=== PATIENT | male | born 1965 | race Caucasian/White ===

== ENCOUNTER → 2020-01-20 | Outpatient (CLI) | payer SELFPAY | LOC: ZCOL.LAB 10:00 | DX: Z01.818 Encounter for other preprocedural examination (principal); Z20.828 Contact with and (suspected) exposure to other viral communicable diseases ==

== ENCOUNTER 2023-10-05 07:33 | Day surgery (SDC) | payer MEDICARE ==
[~2023-10-05] VITALS: Ht 157.5 cm; Wt 122.5 kg
[~2023-10-05 07:33] MED LIST: CIPRO 500MG TA500 MG PO; DIFLUCAN 100MG100 MG PO; HUMALOG 75/2100 U/ML SQ; HYTRIN 2MG CAPSU2 MG PO; HYTRIN 5MG C5 MG/CAP PO; LASIX 40MG TABL40 MG PO; NORCO 325 MG-51 TAB PO; NORVASC 10MG10 MG PO; OZEMPIC1 MG/0.71 SQ; PHOS LO PO; PRINIVIL40 MG PO; PROAIR HFA0.09 MG/AC IH; RENA-VITE1 TAB PO; TOPROL XL 25MG25 MG PO; TRELEGY ELLIPT1 EAC1 IH; VELTASSA8.4 GM PO; ZESTRIL30 MG PO; ZESTRIL40 MG PO
[2023-10-05 09:12] VITALS: BP 184/80; PULSE 84; TEMP 98.3
--- NOTE | 2023-10-05 09:16 | NUR ---
Pt arrived to ER waiting room, RN retrieved; pt is with and son; VSS though BP slightly elevated, RR even and slightly labored with mild walking; peritoneal dialysis catheter present to left quadrant, pt and family states it is infected; utilized video hand paint mixer at bedside for all questions/consent/history/allergies/medications; consent reviewed and signed, answered all questions.
[2023-10-05 10:50] VITALS: BP 172/75; PULSE 82; TEMP 98.1
[2023-10-05 11:05] VITALS: BP 174/79; PULSE 85
[2023-10-05 11:15] VITALS: BP 180/77; PULSE 85
--- NOTE | 2023-10-05 11:35 | NUR ---
Pt returned to [facility] at 1050, bedside report handoff completed, VSS; R neck with non-tunneled dialysis catheter, dressing CDI, and surrounding skin WNL, pt denies pain; PO fluids at bedside and applesauce.
--- NOTE | 2023-10-05 11:37 | NUR ---
Pt and family ready for discharge, patient education and instructions went over without questions/concerns; pt aware to keep dressing dry and head to dialysis apt after discharge. Last set of VSS, though Bp elevated though Provider aware.
[2023-10-05 12:34] VITALS: PULSE 86
== END 2023-10-05 11:25 | disposition home or self-care (01) ==
LOC: SDCO 07:33
DX: T85.611A Breakdown (mechanical) of intraperitoneal dialysis catheter, initial encounter (principal); I12.0 Hypertensive chronic kidney disease with stage 5 chronic kidney disease or end stage renal disease; E11.22 Type 2 diabetes mellitus with diabetic chronic kidney disease; N18.6 End stage renal disease; E66.9 Obesity, unspecified; Z79.4 Long term (current) use of insulin; Z79.84 Long term (current) use of oral hypoglycemic drugs; Y82.8 Other medical devices associated with adverse incidents; Z99.2 Dependence on renal dialysis
CPT/HCPCS: 27659; C1751

== ENCOUNTER 2023-10-10 08:37 | Inpatient (IN) | payer MEDICARE ==
[~2023-10-10] VITALS: Ht 157.5 cm; Wt 111.3 kg
[2023-10-10] VITALS (220 sets, daily range): BP systolic 152–185; BP diastolic 62–80; PULSE 72–96; TEMP 98–98.6; O2SAT 86–100
[~2023-10-10 08:37] MED LIST changes: +Famotidine 20 MG TAB PO SCH; +NS 1,000 ML IV SCH
--- NOTE | 2023-10-10 10:00 | NUR ---
The patient ambulated back to [facility] independently using a steady gait and appeared to tolerate the activity well. The [employer] interpertation system was used obtain his health history, medication list, sign his consents and answer any questions he and his family have. The patient reported through the [email or web address] that he has been having hiccups and shortness of breath for the last 3 days and has to raise his arms above his head to catch his breath. His vital signs were obtained and his oxygen saturation is 99% on room air. The patient's family is at his bedside. 18G IV to his left hand was started and blood was obtained from the IV start for the BMP and accucheck as ordered. Blood sugar was 101. Warm blankets provided. Denies any further needs at this time.
[2023-10-10 10:09] LABS: CREATININE, serum 5.41 mg/dL (0.72-1.25); POTASSIUM 3.8 mEq/L (3.5-4.5)
[2023-10-10] MEDS ORDERED: TESSALON P100 MG/CAP PO (10:26)
--- NOTE | 2023-10-10 10:30 | NUR ---
Phylicia Clarke CRNA was notified of the patient's intractable hiccups and intermittent shortness of breath. He is going to administer 10 mg of Reglan IV to help with the hiccups.
[2023-10-10] MEDS ORDERED: Midazolam 2 MG/2 ML VIAL ONE (10:52)
[2023-10-10] MEDS ORDERED: Topical Skin Adhesive 1 EACH (1 ML) TOP ONE (11:20)
[2023-10-10] MEDS ORDERED: ePHEDrine 50 MG/ML VIAL ONE (11:28)
[2023-10-10 11:55] LABS: MEAN CELL VOLUME 92 fl (80.0-100.0); MEAN CORPUSCULAR HGB CONC 34 g/dl (33.0-37.0); MEAN PLATELET VOLUME 11.8 fl (7.4-10.4); PLATELET COUNT 208 K/mm3 (130-400); RED BLOOD COUNT 2.82 M/mm3 (4.20-5.60); REDCELL DISTRIBUTION WIDTH-CV 13.3 % (11.5-14.5)
[2023-10-10 12:01] LABS: HEMOGLOBIN 8.8 g/dl (13.5-18.0); MEAN CORPUSCULAR HEMOGLOBIN 31 pg (27-31)
[2023-10-10 12:14] LABS: ALBUMIN 2.7 g/dL (3.5-5.0); BILIRUBIN,TOTAL 0.5 mg/dL (0.2-1.2); CALCIUM 7.6 mg/dL (8.4-10.2); CREATININE, serum 5.58 mg/dL (0.72-1.25); POTASSIUM 3.5 mEq/L (3.5-4.5); TOTAL PROTEIN 6.3 g/dl (6.2-8.1)
[2023-10-10 12:15] LABS: BAND 1 % (0-10); LYMPHOCYTE 41 % (20.0-51.0); NEUTROPHILS 58 % (42.0-75.2); PLATELET ESTIMATE NORMAL (NORMAL)
[2023-10-10] MEDS ORDERED: Ondansetron 4 MG/2 ML VIAL IV PRN (12:15)
[2023-10-10] MEDS ORDERED: hydrALAZINE 20 MG/ML 1 ML VIAL IV PRN (12:15)
[2023-10-10] MEDS ORDERED: fentaNYL 50 MCG/ML 1 ML SYRINGE/VIAL [PACU/SDC ONLY] IV PRN (12:15)
[2023-10-10 12:35] LABS: ARTERIAL BLD GAS O2 SATURATION 97.3 % (92-100); ARTERIAL BLD GAS TCO2 CT 24.8; ARTERIAL BLOOD GAS BASE EXCESS -1.4 (-2-2); ARTERIAL BLOOD GAS HCO3 23.6 meq/L (22-26); ARTERIAL BLOOD GAS PCO2 40.7 mmHg (35-45); ARTERIAL BLOOD GAS PO2 112.8 mmHg (80-100); ARTERIAL BLOOD GAS pH 7.38 (7.35-7.45)
[2023-10-10 12:39] LABS: THYROID STIMULATING HORMONE 2.791 uIU/mL (0.350-4.940); TROPONIN-I 0.02 ng/mL (0.00-0.033)
--- NOTE | 2023-10-10 14:49 | NUR ---
PT BROUGHT TO ICU FROM PACU AT 1250. PT NOTED TO BE DROWSY BUT IS ABLE TO HELP MOVE HIMSELF FROM CART TO BED. PERITONEAL DIALYSIS CATH REMOVAL SITE TO ABD WNL, GLUE INTACT. VSS, PT ABLE TO TAKEN OFF OXYGEN AFTER ARRIVAL, O2 SATS REMAIN ABOVE 95% ON ROOM AIR. PT HAS BECOME MORE ALERT AND AWKAE SINCE ARRIVAL, NEURO CHECKS WNL AT THIS TIME.
[2023-10-10] MEDS ORDERED: Furosemide 40 MG/4 ML VIAL IV ONE (15:30)
[2023-10-10] MEDS ORDERED: amLODIPine 10 MG TAB PO SCH (16:38)
[2023-10-10] MEDS ORDERED: Renal Vitamin (Vit B/Vit C/Biotin) CAP PO SCH (16:38)
[2023-10-10] MEDS ORDERED: Albuterol 0.042% Neb Soln 1.25 MG/3 ML UD IH PRN (16:45)
[2023-10-10] MEDS ORDERED: Benzonatate 100 MG CAP PO PRN (16:45)
[2023-10-10] MEDS ORDERED: Dextrose 50% Water 25 GM/50 ML SYRINGE IV PRN (17:00)
[2023-10-10] MEDS ORDERED: Glucagon 1 MG VIAL IM PRN (17:00)
[2023-10-10] MEDS ORDERED: Furosemide 40 MG TAB PO SCH (17:00)
[2023-10-10] MEDS ORDERED: Calcium Acetate 667 MG TAB/CAP PO SCH (17:00)
[2023-10-10] MEDS ORDERED: Dextrose (Glucose) 15 GM (4 x 3.75 GM) Chewable TABLET PACK PO PRN (17:00)
[2023-10-10] MEDS ORDERED: Insulin Lispro (HumaLOG) SQ SCH (18:00)
[2023-10-10] MEDS ORDERED: Heparin 1,000 UNITS/ML 10 ML Multi-Dose VIAL IV SCH (19:15)
[2023-10-10] MEDS ORDERED: Heparin 1,000 UNITS/ML 10 ML Multi-Dose VIAL ICA SCH (19:15)
[2023-10-10] MEDS ORDERED: cefTAZidime 1 GM in Water For Injection,Sterile 10 ML IV SCH (19:30)
[2023-10-10] MEDS ORDERED: Lisinopril 10 MG TAB PO SCH (21:00)
--- NOTE | 2023-10-10 21:00 | NUR ---
Patient resting quietly in bed. Denies pain or discomfort. BP of 166/80, all other vitals within normal limits. [employer] services used to assess orientation and to discuss baseline voiding habits. Per patient, he voids "alot," and more than once/day. Patient states he has not voided since prior to surgery today. Patient bladder scanned with residual of 195mL. Darby notified. No new orders at this time.
[2023-10-11] VITALS (20 sets, daily range): BP systolic 125–177; BP diastolic 69–91; PULSE 76–88; TEMP 97.7–98.2; O2SAT 97–100
--- NOTE | 2023-10-11 09:05 | NUR ---
well service derrick worker met with pt to discuss discharge planning. Pt is [facility] [employer] speaking only, so [employer] [id number] was used. Pt states he lives in [place] with his , Rubi [phone]. He sees Dr. Salazar for PCP needs and obtains medications from [facility] with no difficulties. He reports to get assistance with ADLS from his . He declined use of any DME. He reports to not have a DPOA-HC. Pt was informed he will receive diaylsis then head to the medical floor. He verbalized understanding and had no questions. Discharge Plan: home
--- NOTE | 2023-10-11 09:30 | NUR ---
Reported off to REGAN Cabezas; patient taken upstairs to dialysis in wheelchair by this nurse. Patient's belongings brought up and put in patient's new room, 306; REGAN Bowman was in dialysis room and took over care for dialysis. Patient in stable condition upon transfer and vital signs within normal limits this morning.
--- NOTE | 2023-10-11 10:35 | NUR ---
PATIENT TO UNDERGO HEMODIALYSIS THIS MORNING UTILIZING THE DIALYSIS CATHETER PLACED THE DAY BEFORE. CONSENT OBTAINED. OPTIMIZATION MANAGER SERVICES WERE UTILIZED TO EXPLAIN CONSENT, AND FOR PT TO VERBALIZE UNDERSTANDING OF WHAT HE WAS SIGNING. OPTIMIZATION MANAGER SERVICES WERE ALSO UTILIZED FOR PT ASSESSMENT OPTIMIZATION MANAGER NAME: ARCHIE OPTIMIZATION MANAGER ID: [id number]
--- NOTE | 2023-10-11 12:50 | NUR ---
Dialysis Note Pt arrived to tx via WC uf goal set for 1.2kg and 1.2 kg removed. Pt. tolerated tx well and dcd back to room via WC
--- NOTE | 2023-10-11 20:09 | NUR ---
PATIENT IS SITTING UP ON THE SIDE OF HIS BED. DENIES ANY PAIN AT THIS TIME. PRESENTLY STABLE ON ROOM AIR AND IS ALERT AND ORIENTED. EXPRESSED UNDERSTANDING THAT HE IS NOT TO HAVE ANYTHING TO EAT OR DRINK AFTER MIDNIGHT. CALL LIGHT IS WITHIN REACH. BED IS LOCKED AND IN LOW POSITION.
[2023-10-11] MEDS ORDERED: Fluticasone/Umeclidinium/Vilanterol **** subs to Budesonide + Umeclid/Vilant IH SCH (21:45)
[2023-10-12] VITALS (11 sets, daily range): BP systolic 125–178; BP diastolic 66–94; PULSE 80–99; TEMP 97.9–98.5
[2023-10-12] MEDS ORDERED: Budesonide Neb Susp 0.5 MG/2 ML AMP IH SCH (07:00)
--- NOTE | 2023-10-12 08:00 | NUR ---
Patient sitting up in bed, alert and oriented x 4, NPO after MDN. Asking to know what time his intervention will be. Updated about it will be at 11 am. Assessment completed, with HBP 170's. Dr. Kirkpatrick aware. Medications given. Consents in chart. No further needs at this time. Call light within reach.
[2023-10-12] MEDS ORDERED: Umeclidinium/Vilanterol 62.5-25 MCG INHALATION/INHALER IH SCH (09:00)
[2023-10-12] MEDS ORDERED: Metoprolol Tartrate 25 MG TAB PO ONE (09:15)
--- NOTE | 2023-10-12 11:15 | NUR ---
Patient is taken for intervention.
[2023-10-12] MEDS ORDERED: NS 10 ML IV ONE (12:08)
[2023-10-12] MEDS ORDERED: Bacteriostatic Sodium Chloride 0.9% 30 ML Multi-Dose VIAL IV ONE (12:10)
[2023-10-12] MEDS ORDERED: Iohexol 350 - 100 ML VIAL IV ONE (12:10)
[2023-10-12] MEDS ORDERED: Topical Skin Adhesive 1 EACH (1 ML) TOP ONE (12:10)
[2023-10-12] MEDS ORDERED: fentaNYL 50 MCG/ML 1 ML SYRINGE/VIAL [PACU/SDC ONLY] IV PRN (12:45)
[2023-10-12] MEDS ORDERED: Ondansetron 4 MG/2 ML VIAL IV PRN (12:45)
[2023-10-12] MEDS ORDERED: hydrALAZINE 20 MG/ML 1 ML VIAL IV PRN (12:45)
--- NOTE | 2023-10-12 13:12 | NUR ---
Patient is back to the room, A&O, denies any pain at this time. at bedside. HDC on right chest CDI. VSS. HTN 169/79.
--- NOTE | 2023-10-12 19:45 | NUR ---
report received from lottie brady. pt resting in bed with at bedside. pt denies pain. call light in reach. all needs met at this time.
--- NOTE | 2023-10-12 21:41 | NUR ---
shift assessment complete, see documentation. pt tolerated hs meds well. pt reported that he "cannot pee but feels like he needs to". pt reported the urge to urinate but stated he could not get anything out. bladder scan showed 475ml. updated WARNER Moon. new order for straight cath. cath completed and pt emptied 600ml. pt reports he feels better now. pt denies pain. call light in reach. all needs met at this time.
[2023-10-13 04:00] VITALS: BP 167/85; PULSE 84; TEMP 98.5
--- NOTE | 2023-10-13 07:00 | NUR ---
PT RESTING IN CHAIR AT THIS TIME. PT VOICES NO CONCERNS OR COMPLAINTS. CALL LIGHT WITHIN REACH.
[2023-10-13 08:00] VITALS: BP 175/91; PULSE 76; TEMP 97.5
--- NOTE | 2023-10-13 09:14 | NUR ---
SHIFT ASSESSMENT COMPLETED AT THIS TIME. MORNING MEDICATIONS ADMINSTERED WITHOUT COMPLICATIONS. WILL HOLD LASIX AND AMLODIPINE DUE TO POSSIBLITY OF DIALYSIS TODAY. NO ORDERS RECEIEVED AT THIS TIME BUT IS ANTICIPATED TO DIALIZE TODAY. PT INDEPENDENT IN HIS ROOM. CALLLIGHT WITHIN REACH.
--- NOTE | 2023-10-13 10:01 | NUR ---
THIS NURSE SPOKE WITH DR FORD REGARDING DISCHARGE ORDERS. PT HAS DISCHARGE ORDERS FROM DR. SALOMON. PT IS TO DIALYZE SUNDAY, SUNDAY AND SUNDAY. THIS NURSE SPOKE WITH DR. ALCOCER AND WE DO NOT OFFER WEEKEND DIALYSIS. HE INSTRUCTED WE CONTACT [facility] TO INQUIRE ABOUT OUTPATIENT SERVICES FOR TODAY.
--- NOTE | 2023-10-13 10:14 | NUR ---
OLGA WITH SOCIAL WORK APPROACHED THIS NURSE TO INQUIRE ABOUT PT NEEDING OUTPATIENT DIALYSIS. SHE INFORMED THIS NURSE THAT [facility] WILL NOT TAKE A NEW PATIENT ON THE WEEKEND AND PATIENT HAS NOT HAD A TREATMENT THROUGH THE NEWLY PLACED TUNNEL CATH. PER DR FORD, DR SALOMON THE PRIMARY DOCTOR ON THE CASE, NEEDS TO MAKE THE DESCION ON DISCHARGE.
--- NOTE | 2023-10-13 10:22 | NUR ---
THIS NURSE CONTACTED DR. SALOMON TO CLAIFY THAT IT WAS OK TO PROCEED WITH DISHCHARGE ORDERS. UPDATED ON OUTPATIENT DIALYSIS NEEDED. DR SALOMON INSTRUCTED HE WILL CONTACT DR AYERS REGARDING OUTPATIETN DIALYSIS PRIOR TO DISCHARGE.
--- NOTE | 2023-10-13 10:27 | NUR ---
ALBERTO notified that patient has discharge orders and needs dialysis today. ALBERTO called [facility] and spoke with [facility] who stated they can run patient today. ALBERTO spoke with surgeon who stated patient is ready to discharge and orders are in. ALBERTO notified REGAN Herrera of [facility] ability to run patient treatment today and patient needs to be at clinic by noon. Surgeon notified of plan. ALBERTO Larios notified of plan and will fax dc orders.
--- NOTE | 2023-10-13 10:30 | NUR ---
OLGA WITH SOCIAL WORK HAS INFOMED THIS NURSE THAT [facility] CAN TAKE THIS PATIENT AT NOON TODAY. DISCHARGE ORDERS RECIEVED.
--- NOTE | 2023-10-13 11:08 | NUR ---
DISCHARGE EDUCATION/INSTRUCTIONS PROVIDED AT THIS TIME. PT VOICES NO CONCERN OR QUESTIONS AT THIS TIME. INT DC'D WITH PRESSURE DRESSING APPLIED. PT TRANSPORTED VIA WHEELCHAIR TO PRIVATE VEHICLE WITH FAMILY.
[2023-10-13] MEDS ORDERED: amLODIPine 10 MG TAB PO SCH (11:21)
--- NOTE | 2023-10-13 12:53 | NUR ---
SW sent orders/discharge packet to [facility] [place] and confirmed [place] location for patient's 12:00 appt today- provided nurse updates. Patient is set to discharge home today.
== END 2023-10-13 11:08 | disposition home or self-care (01) | DRG 981 ==
LOC: SDCO 08:37 → ICU 12:47 → MEDICAL 12:48 → SDCO 12:48 → ICU 16:45 → MEDICAL 10-11 09:22 → ICU 10-11 09:22 → MEDICAL 10-11 09:22
PROVIDERS: Registered Nurse; Surgery; ADMIT Internal Medicine
PROC: 0WHG33Z Insertion of Infusion Device into Peritoneal Cavity, Percutaneous Approach (ICD-10-PCS; 2023-10-10)
PROC: 0WPG33Z Removal of Infusion Device from Peritoneal Cavity, Percutaneous Approach (ICD-10-PCS; principal; 2023-10-10 10:30)
DX: T85.71XA Infection and inflammatory reaction due to peritoneal dialysis catheter, initial encounter (principal); G93.41 Metabolic encephalopathy; K65.9 Peritonitis, unspecified; N18.6 End stage renal disease; I12.0 Hypertensive chronic kidney disease with stage 5 chronic kidney disease or end stage renal disease; Y84.1 Kidney dialysis as the cause of abnormal reaction of the patient, or of later complication, without mention of misadventure at the time of the procedure; R09.02 Hypoxemia; R00.1 Bradycardia, unspecified; E11.9 Type 2 diabetes mellitus without complications; Z79.4 Long term (current) use of insulin; Z99.2 Dependence on renal dialysis
CPT/HCPCS: C1750; J0690; J0713; J1644; J1815; J2250; J2704; J2765; J7030; Q3014; Q9967

== ENCOUNTER → 2023-11-21 | Outpatient (CLI) | payer MEDICARE ==
[~2023-11-21] MED LIST changes: -Famotidine 20 MG TAB PO SCH; -NS 1,000 ML IV SCH; +TESSALON P100 MG/CAP PO
== END ==
LOC: COL.RAD 09:19
DX: I87.8 Other specified disorders of veins (principal); N18.6 End stage renal disease